=== PATIENT | female | born 2000 | race Caucasian/White ===

== ENCOUNTER 2023-02-18 10:48 | Emergency (ER) | payer BC | END 2023-02-18 11:50 | disposition home or self-care (01) | LOC: JD.ED 10:48 | DX: R59.0 Localized enlarged lymph nodes (principal); L08.89 Other specified local infections of the skin and subcutaneous tissue; B96.89 Other specified bacterial agents as the cause of diseases classified elsewhere; Z88.0 Allergy status to penicillin; Z88.1 Allergy status to other antibiotic agents | CPT/HCPCS: 99283 ==